=== PATIENT | male | born 1970 | race Caucasian/White ===

== ENCOUNTER 2017-01-26 11:18 | Emergency (ER) | payer SELFPAY ==
[~2017-01-26] VITALS: Ht 165.1 cm; Wt 87.1 kg
[2017-01-26 11:23] VITALS: BP 125/98
== END 2017-01-26 12:48 | disposition home or self-care (01) ==
LOC: ED 11:18
DX: M25.531 Pain in right wrist (principal); R03.0 Elevated blood-pressure reading, without diagnosis of hypertension; M25.532 Pain in left wrist; R20.0 Anesthesia of skin